=== PATIENT | male | born 1935 | race Caucasian/White ===

== ENCOUNTER 2017-05-15 10:27 | Inpatient (IN) | payer MEDICARE ==
[~2017-05-15] VITALS: Ht 180.3 cm; Wt 93.9 kg
[2017-05-15 12:27] VITALS: BP 117/78; PULSE 69; TEMP 98.1
[2017-05-15] MEDS ORDERED: ZOCOR 40MG40 MG PO (13:41)
[2017-05-15] MEDS ORDERED: COREG 3.123.125 MG/T PO (13:42)
[2017-05-15 13:56] LABS: BASO % 0.3 % (0.0-2.0); EOS % 0.1 % (0-4.0); GRAN # 6.4 (1.4-6.5); GRAN % 70.8 % (42.2-75.2); LYMPH # 1.9 (1.2-3.4); LYMPH % 21.1 % (20.0-51.0); MEAN CELL VOLUME 94 fl (80.0-100.0); MEAN CORPUSCULAR HGB CONC 33 g/dl (33.0-37.0); MEAN PLATELET VOLUME 9.1 fl (7.4-10.4); MONO # 0.7 (0.1-0.6); MONO % 7.3 % (1.7-9.3); PLATELET COUNT 167 K/mm3 (130-400); RED BLOOD COUNT 3.13 M/mm3 (4.20-5.60); REDCELL DISTRIBUTION WIDTH-CV 13.2 % (11.5-14.5)
[2017-05-15 13:57] LABS: HEMATOCRIT 29.4 % (42.0-52.0); HEMOGLOBIN 9.8 g/dl (13.5-18.0); MEAN CORPUSCULAR HEMOGLOBIN 31 pg (27.0-31.0)
[2017-05-15 13:59] LABS: RETIC # 0.06 M/mm3 (0.02-0.16); RETIC % 1.9 % (0.5-3.52)
[2017-05-15 14:07] LABS: ALBUMIN 3.1 gm/dL (3.5-5.0); BILIRUBIN,TOTAL 0.3 mg/dL (0.0-1.0); CALCIUM 8.6 mg/dL (8.4-10.2); CREATININE, serum 0.81 mg/dL (0.66-1.25); POTASSIUM 4.7 mmol/L (3.4-5.0); TOTAL PROTEIN 5.5 gm/dL (6.4-8.2)
[2017-05-15 15:34] VITALS: BP 133/44; PULSE 65; TEMP 98.6
[2017-05-15 20:17] VITALS: BP 126/44; PULSE 60; TEMP 98.6
[2017-05-16] VITALS (11 sets, daily range): BP systolic 120–159; BP diastolic 45–536; PULSE 65–91; TEMP 97–98.7
[2017-05-16 06:47] LABS: BASO % 0.3 % (0.0-2.0); EOS # 0.2 (0.0-0.7); EOS % 2.3 % (0-4.0); GRAN # 4.7 (1.4-6.5); GRAN % 53.5 % (42.2-75.2); LYMPH # 2.8 (1.2-3.4); LYMPH % 32.3 % (20.0-51.0); MEAN CELL VOLUME 96 fl (80.0-100.0); MEAN CORPUSCULAR HGB CONC 33 g/dl (33.0-37.0); MEAN PLATELET VOLUME 9.3 fl (7.4-10.4); MONO % 11.1 % (1.7-9.3); PLATELET COUNT 167 K/mm3 (130-400); RED BLOOD COUNT 2.67 M/mm3 (4.20-5.60); REDCELL DISTRIBUTION WIDTH-CV 13.4 % (11.5-14.5)
[2017-05-16 06:53] LABS: HEMATOCRIT 25.5 % (42.0-52.0); HEMOGLOBIN 8.3 g/dl (13.5-18.0); MEAN CORPUSCULAR HEMOGLOBIN 31 pg (27.0-31.0)
[2017-05-16 07:01] LABS: CALCIUM 8.2 mg/dL (8.4-10.2); CREATININE, serum 0.75 mg/dL (0.66-1.25)
[2017-05-16 13:17] LABS: HEMATOCRIT 24.4 % (42.0-52.0)
[2017-05-16 21:32] LABS: HEMATOCRIT 24.2 % (42.0-52.0)
[2017-05-17] VITALS (10 sets, daily range): BP systolic 116–149; BP diastolic 39–55; PULSE 71–83; TEMP 97.9–99.4
[2017-05-17 07:09] LABS: BASO % 0.5 % (0.0-2.0); EOS # 0.5 (0.0-0.7); EOS % 6.1 % (0-4.0); GRAN # 3.9 (1.4-6.5); GRAN % 52.5 % (42.2-75.2); LYMPH # 2.2 (1.2-3.4); LYMPH % 29.6 % (20.0-51.0); MEAN CELL VOLUME 97 fl (80.0-100.0); MEAN CORPUSCULAR HGB CONC 33 g/dl (33.0-37.0); MEAN PLATELET VOLUME 9.4 fl (7.4-10.4); MONO # 0.8 (0.1-0.6); PLATELET COUNT 138 K/mm3 (130-400); RED BLOOD COUNT 2.23 M/mm3 (4.20-5.60); REDCELL DISTRIBUTION WIDTH-CV 13.6 % (11.5-14.5)
[2017-05-17 07:20] LABS: CREATININE, serum 0.76 mg/dL (0.66-1.25); POTASSIUM 3.6 mmol/L (3.4-5.0)
[2017-05-17 07:22] LABS: HEMATOCRIT 21.6 % (42.0-52.0); HEMOGLOBIN 7.1 g/dl (13.5-18.0); MEAN CORPUSCULAR HEMOGLOBIN 32 pg (27.0-31.0)
[2017-05-18 03:13] VITALS: BP 134/51; PULSE 70; TEMP 98.9
[2017-05-18 07:23] LABS: BASO % 0.3 % (0.0-2.0); EOS # 0.5 (0.0-0.7); EOS % 5.8 % (0-4.0); GRAN % 54.6 % (42.2-75.2); LYMPH # 2.4 (1.2-3.4); LYMPH % 26.9 % (20.0-51.0); MEAN CELL VOLUME 95 fl (80.0-100.0); MEAN CORPUSCULAR HGB CONC 33 g/dl (33.0-37.0); MEAN PLATELET VOLUME 9.4 fl (7.4-10.4); MONO # 1.1 (0.1-0.6); MONO % 11.8 % (1.7-9.3); PLATELET COUNT 150 K/mm3 (130-400); RED BLOOD COUNT 2.59 M/mm3 (4.20-5.60); REDCELL DISTRIBUTION WIDTH-CV 13.9 % (11.5-14.5)
[2017-05-18 07:24] LABS: HEMATOCRIT 24.6 % (42.0-52.0); HEMOGLOBIN 8.1 g/dl (13.5-18.0); MEAN CORPUSCULAR HEMOGLOBIN 31 pg (27.0-31.0)
[2017-05-18 07:31] LABS: CALCIUM 8.1 mg/dL (8.4-10.2); CREATININE, serum 0.73 mg/dL (0.66-1.25); POTASSIUM 3.5 mmol/L (3.4-5.0)
[2017-05-18 07:53] VITALS: BP 121/40; PULSE 86; TEMP 98.1
[2017-05-18] MEDS ORDERED: PROTONIX 40MG T40 MG PO (10:06)
[2017-05-18] MEDS ORDERED: FOLIC ACID 11 MG/TA1 PO (11:09)
[2017-05-18] MEDS ORDERED: B-121000 MCG PO (11:09)
[2017-05-18] MEDS ORDERED: FERROUS SU325 MG/TAB PO (11:09)
[2017-05-18 11:24] VITALS: BP 144/60; PULSE 72
[2017-05-18 11:25] VITALS: BP 141/50; PULSE 78
[2017-05-18 11:27] VITALS: BP 137/37; PULSE 81
== END 2017-05-18 14:06 | disposition home or self-care (01) | DRG 378 ==
LOC: MEDICAL 10:27
PROVIDERS: Internal Medicine Gastroenterology; Physician Assistant
PROC: 0DB68ZX Excision of Stomach, Via Natural or Artificial Opening Endoscopic, Diagnostic (ICD-10-PCS; 2017-05-16)
PROC: 0DJD8ZZ Inspection of Lower Intestinal Tract, Via Natural or Artificial Opening Endoscopic (ICD-10-PCS; 2017-05-16)
PROC: 0W3P8ZZ Control Bleeding in Gastrointestinal Tract, Via Natural or Artificial Opening Endoscopic (ICD-10-PCS; principal; 2017-05-16 15:00)
PROC: 0DB98ZX Excision of Duodenum, Via Natural or Artificial Opening Endoscopic, Diagnostic (ICD-10-PCS; 2017-05-16 15:00)
DX: K26.0 Acute duodenal ulcer with hemorrhage (principal); D62 Acute posthemorrhagic anemia; I10 Essential (primary) hypertension; Z86.718 Personal history of other venous thrombosis and embolism; T39.395A Adverse effect of other nonsteroidal anti-inflammatory drugs [NSAID], initial encounter; K57.30 Diverticulosis of large intestine without perforation or abscess without bleeding
CPT/HCPCS: 99223-AI; 99232-AI; 99233-AI; 99239; C9113; J0171; J2704; J7030; P9016